=== PATIENT | male | born 1990 | race Caucasian/White ===

== ENCOUNTER 2022-05-31 19:51 | Emergency (ER) | payer MEDICAID, SELFPAY ==
[2022-05-31 19:52] VITALS: BP 132/99; PULSE 73; RESP 18; TEMP 36.4; O2SAT 100
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
[2022-05-31 21:05] VITALS: TEMP 36.9
== END 2022-05-31 21:06 | disposition home or self-care (01) ==
LOC: ER 21:08
PROVIDERS: Emergency Provider Student in an Organized Health Care Education/Training Program; PCP Family Medicine
DX: S50.12XA Contusion of left forearm, initial encounter (principal); V89.2XXA Person injured in unspecified motor-vehicle accident, traffic, initial encounter
CPT/HCPCS: 99283; 73090

== ENCOUNTER 2024-02-28 17:07 | Outpatient (CLI) | payer MEDICAID, SELFPAY ==
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
== END 2024-02-28 17:27 ==
PROVIDERS: PCP Family Medicine; Visit Provider Family Medicine
DX: S69.92XA Unspecified injury of left wrist, hand and finger(s), initial encounter (principal); X58.XXXA Exposure to other specified factors, initial encounter
CPT/HCPCS: 73110; 73140

== ENCOUNTER 2024-03-20 02:30 | Outpatient (CLI) | payer MEDICAID, SELFPAY ==
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
== END 2024-03-20 02:50 ==
LOC: DI 02:30
PROVIDERS: PCP Family Medicine; Visit Provider Physician Assistant
DX: M51.36 Other intervertebral disc degeneration, lumbar region (principal)
CPT/HCPCS: 72148

== ENCOUNTER 2024-05-01 18:39 | Outpatient (REF) | payer MEDICAID, SELFPAY ==
[2024-05-01 16:53] LABS: Anion Gap 6.6 mmol/L (3-11); BUN 16 mg/dL (7-18); CO2 29.4 mmol/L (21.0-32.0); Calcium 9.3 mg/dL (8.5-10.1); Calculated LDL 106 mg/dL (<100); Chloride 107 mmol/L (98-107); Cholesterol 179 mg/dL (<200); Estimated GFR 102.55 (mL/min/1.73m2); Glucose 85 mg/dL (74-106); HDL Cholesterol 61 mg/dL (40-60); Potassium 4.4 mmol/L (3.5-5.1); Sodium 143 mmol/L (136-145); Triglyceride 60 mg/dL (<150)
== END 2024-05-01 18:40 | disposition home or self-care (01) ==
LOC: NCHCN 18:39
PROVIDERS: PCP Family Medicine; Visit Provider Family Medicine
DX: Z00.00 Encounter for general adult medical examination without abnormal findings (principal); Z13.220 Encounter for screening for lipoid disorders
CPT/HCPCS: 80048; 80061